=== PATIENT | male | born 1980 | race Caucasian/White ===

== ENCOUNTER 2019-04-29 20:46 | Emergency (ER) | payer OTHER ==
[~2019-04-29] VITALS: Ht 170.2 cm; Wt 104.3 kg
[2019-04-29 21:02] VITALS: BP_SYST 153
--- NOTE | 2019-04-29 22:01 | NUR ---
Patient to ER bed 3 to gown for evaluation. Side rails up. Report given to MIGUEL CHUNG.
--- NOTE | 2019-04-29 22:01 | NUR ---
Pt c/o sore throat x 2 days. Denies c/o cough. Airway patent.
--- NOTE | 2019-04-29 22:15 | NUR ---
Dr. Moe at bedside.
[2019-04-29 23:40] VITALS: BP_SYST 128
--- NOTE | 2019-04-29 23:40 | NUR ---
Patient given written and verbal discharge instructions and verbalizes understanding. ER MD discussed with patient the results and treatment provided. Patient in stable condition. ID arm band removed. Rx of Amoxicillin and Cepacol given. Patient educated on pain management and to follow up with PMD. Pain Scale 0/10. Opportunity for questions provided and answered. Medication side effect fact sheet provided.
== END 2019-04-29 23:40 | disposition home or self-care (01) ==
LOC: SED 20:46
DX: J02.9 Acute pharyngitis, unspecified (principal); Z85.828 Personal history of other malignant neoplasm of skin
CPT/HCPCS: 36415; 86403; 87081; 99283